=== PATIENT | male | born 1950 | race Caucasian/White ===

== ENCOUNTER 2023-11-03 16:33 | Inpatient (IN) ==
--- NOTE | 2023-11-03 16:40 | Emergency Department Note ---
Impression & Plan Aspiration pneumonia, Hypoxia ED Provider Note Provider: Yobani Partida MD DATE OF SERVICE: 11/03/2023 CHIEF COMPLAINT: Hypoxia postsurgery today HISTORY OF PRESENT ILLNESS: Patient is a 73-year-old gentleman past medical history of GERD and esophageal stricture as well as arthritis presenting via ambulance from the emergency orthopedic surgery center. Underwent a left knee replacement this morning. Finished surgery on 9:30 AM according the patient and his son-in-law who is at bedside. Since that time has had issues with low oxygen after becoming nauseous and vomiting. There is concern that he possibly aspirated and over the course of the day that he has been there and they have been unable to wean his oxygen level. Not normally on oxygen at baseline. Denies any falls or trauma. Denies chest pain or abdominal pain. Still experiencing a bit of numbness in the left foot from spinal anesthesia but feels his left leg. Denies a history of pulmonary issues or significant smoking in the past. Denies feeling significantly short of breath at rest. No significant cardiac history reported. Patient did receive Pepcid as well as several nausea medications at the surgery center and does not endorse any nausea now. Little bit of dizziness with the nausea earlier but this is resolved. PAST MEDICAL HISTORY: As noted above MEDICATIONS: Reviewed home medication list SOCIAL HISTORY: Non-smoker PHYSICAL EXAM: GENERAL: alert and oriented in no acute distress on stretcher Head: normocephalic and atraumatic EYES: No injection, discharge or icterus.EOMI. NECK: Trachea midline. Supple. ENT: Mucous membranes pink and moist. LUNGS: Airway patent. No retractions. Breath sounds clear with a few crackles in the bases. HEART: Regular rate and rhythm. No chest wall tenderness ABDOMEN: Soft and non-tender, without guarding or rebound. SKIN: Acyanotic, warm, dry, without rashes EXTREMITIES: Without swelling, tenderness or deformity except for the left lower extremity which is in a brace with wound drain in place. Intact gross sensation of left calf. NEUROLOGICAL: No aphasia. No facial droop or slurred speech. Normal strength and tone in the extremities. Sensation to gross touch normal EK beats per minute. Normal sinus rhythm. No PVC or PAC. No acute ST segment elevation or depression with a QTc of 439. CONTINUOUS CARDIAC MONITORING: was ordered and showed a heart rate of80s to 90s bpm in normal sinus rhythm Patient's laboratory studies and imaging reviewed. Differential includes Reactive airway disease, pneumonia, pneumothorax, COPD, CHF, infections, cardiac ischemia, pulmonary embolism, musculoskeletal, gastrointestinal, as well as other pathologies. IMPRESSION/MEDICAL DECISION MAKING: Patient arrived to the time of unexpected downtime. Patient well-appearing on exam but new hypoxia requiring 5 to 6 L of nasal cannula oxygen supplementation. Will obtain CT of the chest to further differentiate exclude PE or occult aspiration as chest x-ray without severe abnormality noted. Does not appear to be pneumothorax. Denies significant chest pain. Expected slight numbness in the left foot after spinal anesthesia but no significant neurological deficits appreciable. No reported history of pulmonary issues or COPD. Chest x-ray. Also with acute findings. Did unfortunately hemodialysis initial blood work required recollect. Blood work here with a mild leukocytosis 11.2 and minimal anemia of 13.6. No significant electrolyte abnormalities signs of renal dysfunction. Troponin sent. CT of the chest completed will cover empirically with a dose of Unasyn for antimicrobial coverage. Will bring into the hospital for further care with his hypoxia. Patient and family updated at bedside. DIAGNOSIS: Hypoxia, aspiration pneumonia DISPOSITION: Hospitalist will evaluate Patient was agreeable with this plan. Allergies Allergies Allergy/AdvReac Type Severity Reaction Status Date / Time morphine AdvReac Severe COULD NOT Verified 11/03/23 19:04 URINATE Home Meds Home Medications Medication Instructions Recorded Confirmed ascorbic acid (vitamin C) 1,000 mg 1 g PO DAILY 11/03/23 11/03/23 tablet (Vitamin C) cefadroxil 500 mg capsule 500 mg PO BID 11/03/23 11/03/23 cholecalciferol (vitamin D3) 50 50 mcg PO DAILY 11/03/23 11/03/23 mcg (2,000 unit) capsule (Vitamin D3) glucosamine sulf dipot 1 cap PO DAILY 11/03/23 11/03/23 chlr,msm,chond 550 mg-C 30 mg-whitney 1 mg capsule (Glucosamine Chondroitin) omega 7-uyj-skn-fish oil 1,200 mg 1 cap PO DAILY 11/03/23 11/03/23 (144 mg-216 mg) capsule (Fish Oil) ondansetron HCl 4 mg tablet 4 mg PO Q6H PRN NAUSEA/VOMTING 11/03/23 11/03/23 pantoprazole 40 mg tablet,delayed 40 mg PO BID 11/03/23 11/03/23 release turmeric 400 mg capsule 400 mg PO DAILY 11/03/23 11/03/23 zinc gluconate 50 mg tablet 50 mg PO DAILY 11/03/23 11/03/23 Results & Data (ED) Vital Signs Vital Signs - 24 hr 11/03/23 17:20 11/03/23 17:28 11/03/23 18:34 Pulse Rate 82 Pulse Rate [Apical] 76 Respiratory Rate 22 Respiratory Effort / Characteristics Short of Breath Respiratory Depth Normal Respiratory Pattern Blood Pressure [Right Arm] 137/82 Blood Pressure Mean [Right Arm] 100 Blood Pressure Position [Right Arm] Lying Pulse Oximetry 94 91 Oxygen Delivery Method Nasal Cannula Nasal Cannula Oxygen Flow Rate 4 4 11/03/23 19:43 Pulse Rate Pulse Rate [Apical] 94 H Respiratory Rate 20 Respiratory Effort / Characteristics Non-Labored Spontaneous Respiratory Depth Normal Respiratory Pattern Regular Blood Pressure [Right Arm] 154/83 H Blood Pressure Mean [Right Arm] 106 Blood Pressure Position [Right Arm] Lying Pulse Oximetry 94 Oxygen Delivery Method Nasal Cannula Oxygen Flow Rate 3 Laboratory Data 11/03/23 18:02 11/03/23 18:02 Lab Results 11/03/23 11/03/23 Range/Units 16:20 18:02 WBC Cancelled 11.22 H RBC Cancelled 4.47 L Hgb Cancelled 13.6 L Hct Cancelled 40.6 L MCV Cancelled 90.8 MCH Cancelled 30.4 MCHC Cancelled 33.5 RDW Std Deviation Cancelled 43.6 RDW Coeff of Lucy Cancelled 13.1 Plt Count Cancelled 233 MPV Cancelled 9.8 Absolute Nucleated RBC Cancelled Nucleated RBC % (auto) Cancelled Platelet Estimate Cancelled PT Cancelled 10.9 INR Cancelled 1.0 Sodium Cancelled 137 Potassium Cancelled 4.5 Chloride Cancelled 108 H Carbon Dioxide Cancelled 23 Anion Gap Cancelled 6 BUN Cancelled 20 Creatinine Cancelled 1.04 Est Cr Clr Drug Dosing Cancelled Not Reportable Est GFR ( Amer) Cancelled 81.6 Est GFR (Non-Af Amer) Cancelled 70.4 BUN/Creatinine Ratio Cancelled 19.2 Glucose Cancelled 125 H Calcium Cancelled 8.3 L Total Bilirubin Cancelled 0.7 AST Cancelled 26 ALT Cancelled 17 Alkaline Phosphatase Cancelled 62 Troponin I High Sens 5.6 (0-20) pg/ml Total Protein Cancelled 6.8 Albumin Cancelled 4.0 Globulin Cancelled 2.8 Albumin/Globulin Ratio Cancelled 1.4 Administered Medications Discontinued Medications Ioversol (Optiray 350 500ml) 109 ml IV ONCE ONE Stop: 11/03/23 19:34 Last Admin: 11/03/23 19:33 Dose: 109 ml Documented By: [facility] Data Radiologist's Impression: Chest X-Ray 11/03/23 00:00 Rajat Lopez CXR 1V SINGLE VIEW CHEST CLINICAL HISTORY: Aspiration. FINDINGS: An AP, portable, upright chest radiograph is obtained. No prior studies are available for comparison at the time of dictation. The heart is enlarged. The pulmonary vasculature is noncongested. Nonspecific interstitial thickening secondary to chronic. No airspace consolidation or large pleural effusion is identified. Scarring/atelectasis is seen at both lung bases. No pneumothorax is seen. The skeletal structures are osteopenic. The bony thorax is grossly intact. Postsurgical change is noted in both shoulders. IMPRESSION: Cardiomegaly with no active disease in the chest. ACT 112: Negative or not required by law. Electronically signed by: Ronnie Pérez M.D. 11/03/2023 4:24 PM Chest CTA 11/03/23 16:38 Exam(s): CTA CHEST IV Amt: 109 cc opti 350 EXAM: CT Angiography Chest With Intravenous Contrast CLINICAL HISTORY: Reason for exam: PE, hypoxia. TECHNIQUE: Axial computed tomographic angiography images of the chest with intravenous contrast. CTDI is 15.48 mGy and DLP is 492.11 mGy-cm. Automated exposure control was utilized for the study. A dose lowering technique was utilized adhering to the principles of ALARA. MIP reconstructed images were created and reviewed. COMPARISON: No relevant prior studies available. FINDINGS: Pulmonary arteries: Unremarkable. No evidence of pulmonary embolus. Aorta: No acute findings. No thoracic aortic aneurysm. Other veins: Apparent right subclavian vein. Lungs: Perihilar and bibasilar atelectasis versus infiltrate, left greater than right. No mass. Pleural space: Unremarkable. No significant effusion. No pneumothorax. Heart: See below. Mediastinum: Fluid within the esophagus, correlate for esophageal reflux. Bones/joints: Knee anterior pericardial effusion versus pericardial thickening measuring 5.2 mm. No acute fracture. No dislocation. Soft tissues: Unremarkable. Lymph nodes: Unremarkable. No enlarged lymph nodes. Gallbladder and bile ducts: Distended gallbladder without wall thickening. IMPRESSION: 1. No evidence of pulmonary embolus. Postsurgical changes in the bilateral humeri. 2. Perihilar and bibasilar atelectasis versus infiltrate, left greater than right. 3. Small anterior pericardial effusion versus pericardial thickening measuring 5.2 mm. Electronically signed by: Jasmyne Wilson MD 11/03/23 20:12 PM Discharge Plan Visit Data Chief Complaint: Dizziness Stated Complaint: DIZZINESS ED Provider: Yobani Partida Discharge Problem: Aspiration pneumonia, Hypoxia Patient Disposition: Being Evaluated by Hospitalist Forms Stand Alone Forms: My [facility] [employer] Prescriptions Prescriptions: No Action ascorbic acid (vitamin C) [Vitamin C] 1,000 mg Tablet 1 g PO DAILY ondansetron HCl 4 mg tablet 4 mg PO Q6H PRN (Reason: NAUSEA/VOMTING) cefadroxil 500 mg capsule 500 mg PO BID Rx Instructions: ORDERED 11/11/23, "NOT STARTED YET". pantoprazole 40 mg tablet,delayed release (DR/EC) 40 mg PO BID zinc gluconate 50 mg Tablet 50 mg PO DAILY cholecalciferol (vitamin D3) [Vitamin D3] 50 mcg (2,000 unit) Capsule 50 mcg PO DAILY omega 5-mpm-lcl-fish oil [Fish Oil] 1,200 (144-216) mg Capsule 1 cap PO DAILY Rx Instructions: ON HOLD FOR SURGICAL PROCEDURE turmeric 400 mg Capsule 400 mg PO DAILY Glucosamine Chondroitin 550-30-1 mg Capsule 1 cap PO DAILY Referrals Referrals: PCP,NO [Physician] -
--- NOTE | 2023-11-03 17:47 | XRay Report ---
SINGLE VIEW CHEST CLINICAL HISTORY: Aspiration. FINDINGS: An AP, portable, upright chest radiograph is obtained. No prior studies are available for comparison at the time of dictation. The heart is enlarged. The pulmonary vasculature is noncongested. Nonspecific interstitial thickening secondary to chronic. No airspace consolidation or large pleural effusion is identified. Scarring/atelectasis is seen at both lung bases. No pneumothorax is seen. The skeletal structures are osteopenic. The bony thorax is grossly intact. Postsurgical change is noted in both shoulders. IMPRESSION: Cardiomegaly with no active disease in the chest. ACT 112: Negative or not required by law. Electronically signed by: Ronnie Pérez M.D. 11/03/2023 4:24 PM [facility]
[2023-11-03 18:35] LABS: Hematocrit (blood only) 40.6 % (42.0-52.0); Hemoglobin 13.6 g/dl (14.0-18.0); Mean Corpuscular Hemoglobin 30.4 pg (25.0-34.0); Mean Corpuscular Hgb Conc 33.5 g/dL (32.0-36.0); Mean Corpuscular Volume 90.8 fL (80.0-100.0); Mean Platelet Volume 9.8 fL (9.4-12.4); Platelet Count 233 K/uL (130-400); RDW Coefficient of Variation 13.1 % (11.5-14.5); RDW Standard Deviation 43.6 fL (36.4-46.3); Red Blood Count 4.47 M/uL (4.70-6.10); White Blood Count 11.22 K/ul (4.8-10.8)
[2023-11-03 18:52] LABS: Alanine Aminotransferase 17 U/L (7-52); Albumin Globulin Ratio 1.4 (0.9-2); Alkaline Phosphatase 62 U/L (34-104); Anion Gap 6 (3-11); Aspartate Aminotransferase 26 U/L (13-39); BUN Creatinine Ratio 19.2 (10-20); Bilirubin,Total 0.7 mg/dl (0.2-1.0); Blood Urea Nitrogen 20 mg/dl (6-23); Calcium 8.3 mg/dl (8.6-10.3); Carbon Dioxide 23 mmol/L (21-32); Chloride 108 mmol/L (98-107); Est GFR (African American) 81.6 ml/min; Est GFR (Non-African American) 70.4 ml/min; Globulin 2.8 gm/dl (2.5-4.0); Glucose 125 mg/dl (70-99(Fasting)); Potassium 4.5 mmol/L (3.5-5.1); Sodium 137 mmol/L (136-145); Total Protein 6.8 gm/dl (6.0-8.3)
[2023-11-03 19:03] LABS: Prothrombin Time 10.9 Seconds (9.0-12.0)
[2023-11-03] MEDS: OPTIRAY 350 500ml IV ONE (19:33)
[2023-11-03 19:49] LABS: Troponin I High Sensitivity 5.6 pg/ml (0-20)
--- NOTE | 2023-11-03 20:13 | CT Scan Report ---
Exam(s): CTA CHEST IV Amt: 109 cc opti 350 EXAM: CT Angiography Chest With Intravenous Contrast CLINICAL HISTORY: Reason for exam: PE, hypoxia. TECHNIQUE: Axial computed tomographic angiography images of the chest with intravenous contrast. CTDI is 15.48 mGy and DLP is 492.11 mGy-cm. Automated exposure control was utilized for the study. A dose lowering technique was utilized adhering to the principles of ALARA. MIP reconstructed images were created and reviewed. COMPARISON: No relevant prior studies available. FINDINGS: Pulmonary arteries: Unremarkable. No evidence of pulmonary embolus. Aorta: No acute findings. No thoracic aortic aneurysm. Other veins: Apparent right subclavian vein. Lungs: Perihilar and bibasilar atelectasis versus infiltrate, left greater than right. No mass. Pleural space: Unremarkable. No significant effusion. No pneumothorax. Heart: See below. Mediastinum: Fluid within the esophagus, correlate for esophageal reflux. Bones/joints: Knee anterior pericardial effusion versus pericardial thickening measuring 5.2 mm. No acute fracture. No dislocation. Soft tissues: Unremarkable. Lymph nodes: Unremarkable. No enlarged lymph nodes. Gallbladder and bile ducts: Distended gallbladder without wall thickening. IMPRESSION: 1. No evidence of pulmonary embolus. Postsurgical changes in the bilateral humeri. 2. Perihilar and bibasilar atelectasis versus infiltrate, left greater than right. 3. Small anterior pericardial effusion versus pericardial thickening measuring 5.2 mm. Electronically signed by: Jasmyne Wilson MD 11/03/23 20:12 PM
--- NOTE | 2023-11-03 20:42 | History & Physical Report ---
Date of Service November 03, 2023 Assessment & Plan (1) Acute respiratory failure with hypoxia: (2) Aspiration pneumonia: (3) Pericardial effusion: (4) Status post left knee replacement: (5) GERD (gastroesophageal reflux disease): (6) Esophageal stricture: Plan Acute respiratory failure with hypoxia/bilateral aspiration pneumonia- N.p.o. overnight Likely secondary to aspiration from nausea and vomiting as he was recovering from anesthesia Unasyn 3 g IV every 6 hours DuoNebs every 2 hours as needed Nasal cannula oxygen, titrate to keep pulse ox around 94% GERD/esophageal stricture- Usually on pantoprazole 40 mg p.o. twice daily Placed on pantoprazole 40 mg IV twice daily until aspiration process is cleared NSS at 80 mL/h x 1 L Status post left TKA- Reports that he is doing well postoperatively Aspirin 81 mg p.o. twice daily for DVT prophylaxis per Ortho protocol Consult [facility] to follow regarding PT/OT and routine postop care Acetaminophen 650 mg by mouth every 6 hours as needed for mild pain or fever Oxycodone 5 mg by mouth every 4 hours as needed for moderate pain Morphine sulfate 4 mg IV every 4 hours as needed for severe pain Hold Celebrex 200 mg p.o. twice daily, which supported the routine postop orders, until he is taken intake orally History of Present Illness Chief Complaint: The patient is sent to the emergency department from [facility], where he became short of breath and hypoxic after left TKA surgery earlier this morning Primary Care Provider: GUSTAVO LEDEZMA The patient is a 73-year-old male with a past medical history including GERD, and esophageal stricture, who underwent a left TKA at [facility] outpatient erie earlier today this morning. He reports that he had some nausea and vomiting as he was recovering from surgery, and then had issues with oxygenation. He was sent to the emergency department via ambulance. While in the emergency department, patient was found to be hypoxic, with pulse ox in the upper 80s to low 90s, which did improve with 3 L to 94-95%. Chest x-ray and CT angiography suggested bilateral, bilateral infiltrates, and patient is being admitted for aspiration pneumonia. Allergies Allergy/AdvReac Type Severity Reaction Status Date / Time morphine AdvReac Severe COULD NOT Verified 11/03/23 19:04 URINATE Home Medications Medication Instructions Recorded Confirmed Type ascorbic acid (vitamin C) 1,000 mg 1 g PO DAILY 11/03/23 11/03/23 History tablet (Vitamin C) cefadroxil 500 mg capsule 500 mg PO BID 11/03/23 11/03/23 History cholecalciferol (vitamin D3) 50 50 mcg PO DAILY 11/03/23 11/03/23 History mcg (2,000 unit) capsule (Vitamin D3) glucosamine sulf dipot 1 cap PO DAILY 11/03/23 11/03/23 History chlr,msm,chond 550 mg-C 30 mg-whitney 1 mg capsule (Glucosamine Chondroitin) omega 3-dbh-hxs-fish oil 1,200 mg 1 cap PO DAILY 11/03/23 11/03/23 History (144 mg-216 mg) capsule (Fish Oil) ondansetron HCl 4 mg tablet 4 mg PO Q6H PRN NAUSEA/VOMTING 11/03/23 11/03/23 History pantoprazole 40 mg tablet,delayed 40 mg PO BID 11/03/23 11/03/23 History release turmeric 400 mg capsule 400 mg PO DAILY 11/03/23 11/03/23 History zinc gluconate 50 mg tablet 50 mg PO DAILY 11/03/23 11/03/23 History Past Med/Surg History Medical History (Updated 11/04/23 @ 04:09 by Agustin Berg MD) Esophageal stricture GERD (gastroesophageal reflux disease) Social History Smoking Status: Never smoker Hx Alcohol Use: No Hx Substance Use: No Preferred Language: Salvadorean Communication Ability: Effective 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 Beliefs That Will Affect Care: None Current Living Situation: Spouse Other Information That Helps Us Care for You: No Feels Safe at Home: Yes Safety Concerns: Feels Safe At This Time Assistive Devices: Glasses Review of Systems Review of Systems: The patient denies chest pain, palpitations, lower extremity swelling, fevers, chills, sweats, nausea, vomiting, diarrhea , constipation, abdominal pain, pelvic pain, blood in urine or stool, dysuria, urinary frequency or urgency, lightheadedness, dizziness, headache, memory loss, loss of consciousness, rash, abnormal bruising or bleeding, imbalance, focal or generalized weakness, numbness or tingling in arms or legs, generalized arthralgias or myalgias, back or neck pain, or night sweats. The review of systems is otherwise negative other than for that already noted above, and at least 10 systems have been reviewed. Physical Exam Physical Exam: The patient is awake, alert and oriented 3, well developed and well nourished, normocephalic and atraumatic, lying in bed and in no acute distress. HEENT--PERRL, EOMI, mucous membranes and oropharynx mildly dry. Neck--supple. No JVD. No bruits. Thyroid normal, trachea midline, no adenopathy. Heart--normal S1 and S2. No murmurs, rubs or gallops. Lungs--coarse breath sounds bilaterally, no respiratory distress, no accessory muscle use. Abdomen--normal bowel sounds and soft. Nontender. Nondistended, no hernias or masses, no organomegaly. Extremities--No edema. Dermatologic--normal skin turgor, normal color, no abnormal lymph nodes, no rash. Neurologic--cranial nerves II through XII grossly intact. Rheumatologic--normal range of motion, except for recently surgerized left knee Psychiatric--normal affect. Results & Data Results & Data Vital Signs (Past 12 Hours) Vital Signs Pulse Pulse Resp BP Pulse Ox O2 Del Method O2 Flow Rate 11/03/23 19:43 94 H 20 154/83 H 94 Nasal Cannula 3 11/03/23 18:34 82 11/03/23 17:28 91 Nasal Cannula 4 11/03/23 17:20 76 22 137/82 94 Nasal Cannula 4 Laboratory Results Laboratory Results WBC 11.22 K/ul (4.8-10.8) H 11/03/23 18:02 RBC 4.47 M/uL (4.70-6.10) L 11/03/23 18:02 Hgb 13.6 g/dl (14.0-18.0) L 11/03/23 18:02 Hct 40.6 % (42.0-52.0) L 11/03/23 18:02 MCV 90.8 fL (80.0-100.0) 11/03/23 18:02 MCH 30.4 pg (25.0-34.0) 11/03/23 18:02 MCHC 33.5 g/dL (32.0-36.0) 11/03/23 18:02 RDW Std Deviation 43.6 fL (36.4-46.3) 11/03/23 18:02 RDW Coeff of Lucy 13.1 % (11.5-14.5) 11/03/23 18:02 Plt Count 233 K/uL (130-400) 11/03/23 18:02 MPV 9.8 fL (9.4-12.4) 11/03/23 18:02 Absolute Nucleated RBC Cancelled 11/03/23 16:20 Nucleated RBC % (auto) Cancelled 11/03/23 16:20 Platelet Estimate Cancelled 11/03/23 16:20 PT 10.9 Seconds (9.0-12.0) 11/03/23 18:02 INR 1.0 (0.9-1.1) 11/03/23 18:02 Sodium 137 mmol/L (136-145) 11/03/23 18:02 Potassium 4.5 mmol/L (3.5-5.1) 11/03/23 18:02 Chloride 108 mmol/L (98-107) H 11/03/23 18:02 Carbon Dioxide 23 mmol/L (21-32) 11/03/23 18:02 Anion Gap 6 (3-11) 11/03/23 18:02 BUN 20 mg/dl (6-23) 11/03/23 18:02 Creatinine 1.04 mg/dl (0.6-1.4) 11/03/23 18:02 Est Cr Clr Drug Dosing Not Reportable 11/03/23 18:02 Est GFR ( Amer) 81.6 ml/min 11/03/23 18:02 Est GFR (Non-Af Amer) 70.4 ml/min 11/03/23 18:02 BUN/Creatinine Ratio 19.2 (10-20) 11/03/23 18:02 Glucose 125 mg/dl (70-99(Fasting)) H 11/03/23 18:02 Calcium 8.3 mg/dl (8.6-10.3) L 11/03/23 18:02 Total Bilirubin 0.7 mg/dl (0.2-1.0) 11/03/23 18:02 AST 26 U/L (13-39) 11/03/23 18:02 ALT 17 U/L (7-52) 11/03/23 18:02 Alkaline Phosphatase 62 U/L (34-104) 11/03/23 18:02 Troponin I High Sens 5.6 pg/ml (0-20) 11/03/23 18:02 Total Protein 6.8 gm/dl (6.0-8.3) 11/03/23 18:02 Albumin 4.0 gm/dl (3.4-5.0) 11/03/23 18:02 Globulin 2.8 gm/dl (2.5-4.0) 11/03/23 18:02 Albumin/Globulin Ratio 1.4 (0.9-2) 11/03/23 18:02 Impressions Chest X-Ray 11/03/23 00:00 Rajat Lopez CXR 1V SINGLE VIEW CHEST CLINICAL HISTORY: Aspiration. FINDINGS: An AP, portable, upright chest radiograph is obtained. No prior studies are available for comparison at the time of dictation. The heart is enlarged. The pulmonary vasculature is noncongested. Nonspecific interstitial thickening secondary to chronic. No airspace consolidation or large pleural effusion is identified. Scarring/atelectasis is seen at both lung bases. No pneumothorax is seen. The skeletal structures are osteopenic. The bony thorax is grossly intact. Postsurgical change is noted in both shoulders. IMPRESSION: Cardiomegaly with no active disease in the chest. ACT 112: Negative or not required by law. Electronically signed by: Ronnie Pérez M.D. 11/03/2023 4:24 PM Chest CTA 11/03/23 16:38 Exam(s): CTA CHEST IV Amt: 109 cc opti 350 EXAM: CT Angiography Chest With Intravenous Contrast CLINICAL HISTORY: Reason for exam: PE, hypoxia. TECHNIQUE: Axial computed tomographic angiography images of the chest with intravenous contrast. CTDI is 15.48 mGy and DLP is 492.11 mGy-cm. Automated exposure control was utilized for the study. A dose lowering technique was utilized adhering to the principles of ALARA. MIP reconstructed images were created and reviewed. COMPARISON: No relevant prior studies available. FINDINGS: Pulmonary arteries: Unremarkable. No evidence of pulmonary embolus. Aorta: No acute findings. No thoracic aortic aneurysm. Other veins: Apparent right subclavian vein. Lungs: Perihilar and bibasilar atelectasis versus infiltrate, left greater than right. No mass. Pleural space: Unremarkable. No significant effusion. No pneumothorax. Heart: See below. Mediastinum: Fluid within the esophagus, correlate for esophageal reflux. Bones/joints: Knee anterior pericardial effusion versus pericardial thickening measuring 5.2 mm. No acute fracture. No dislocation. Soft tissues: Unremarkable. Lymph nodes: Unremarkable. No enlarged lymph nodes. Gallbladder and bile ducts: Distended gallbladder without wall thickening. IMPRESSION: 1. No evidence of pulmonary embolus. Postsurgical changes in the bilateral humeri. 2. Perihilar and bibasilar atelectasis versus infiltrate, left greater than right. 3. Small anterior pericardial effusion versus pericardial thickening measuring 5.2 mm. Electronically signed by: Jasmyne Wilson MD 11/03/23 20:12 PM This CIWA Code Status & VTE Plan Code Status Full code VTE Prophylaxis Plan VTE Prophylaxis will be ordered: Yes PG Care Time/CCT Total # of Minutes Spent Total Time Spent with Patient: Total time spent is greater than 50% in coordination of care (as documented) at patient's floor/unit and/or counseling patient: Coding Level of Care Code 70906 INT INP/OBS CARE 3/75MIN Diagnoses Acute respiratory failure with hypoxia J96.01 Aspiration pneumonia J69.0 Pericardial effusion I31.39 Status post left knee replacement Z96.652 GERD (gastroesophageal reflux disease) K21.9 Esophageal stricture K22.2
[2023-11-03] MEDS: ASPIRIN 81 MG CHEW PO STA (21:07)
[2023-11-03] MEDS: PANTOprazole 40 MG in SYRINGE 0 ML IV ONE (21:08)
[2023-11-03] MEDS: AMPICILLIN/SULBACTAM SOD 3,000 MG in SODIUM CHLOR 0.9% MINI-B 100 ML IV STA (21:08)
[2023-11-03] MEDS ORDERED: ONDANSETRON INJ 2 MG/ML 2 ML VIAL IV PRN (22:45)
[2023-11-03] MEDS ORDERED: ALBUT/IPRATROP 3MG/0.5MG NEB 3 ML VIAL NEB PRN (22:45)
[2023-11-03] MEDS: SODIUM CHLORIDE 0.9% 1,000 ML IV SCH (23:38)
[2023-11-04] MEDS: AMPICILLIN/SULBACTAM SOD 3,000 MG in SODIUM CHLOR 0.9% MINI-B 100 ML IV SCH (03:38)
[2023-11-04] MEDS: ACETAMINOPHEN 325 MG TAB PO PRN (07:10)
[2023-11-04 07:21] LABS: Basophils # (auto) 0.03 K/uL (0.00-0.20); Basophils % (auto) 0.2 %; Hematocrit (blood only) 36.8 % (42.0-52.0); Hemoglobin 12.4 g/dl (14.0-18.0); Immature Granulocytes # (auto) 0.04 K/uL (0.01-0.20); Immature Granulocytes % (auto) 0.3 %; Lymphocytes # (auto) 2.12 K/uL (1.20-3.40); Mean Corpuscular Hemoglobin 30.3 pg (25.0-34.0); Mean Corpuscular Hgb Conc 33.7 g/dL (32.0-36.0); Mean Platelet Volume 9.8 fL (9.4-12.4); Monocytes # (auto) 0.93 K/uL (0.11-0.59); Monocytes % (auto) 6.6 %; Neutrophils # (auto) 10.98 K/uL (1.40-6.50); Neutrophils % (auto) 77.9 %; Platelet Count 202 K/uL (130-400); RDW Coefficient of Variation 13.2 % (11.5-14.5); RDW Standard Deviation 43.6 fL (36.4-46.3); Red Blood Count 4.09 M/uL (4.70-6.10)
--- NOTE | 2023-11-04 07:44 | Orthopedic Consultation ---
Date of Consultation November 04, 2023 Assessment & Plan (1) Status post left knee replacement: 73-year-old male who underwent a same-day left total knee arthroplasty at [facility] and tolerated the procedure well. Postoperatively he had issues with nausea vomiting and hypoxia and was transferred to [facility] for further medical care. At this point his left knee is doing fine, he can begin physical therapy as soon as primary team feels it is safe for him to get out of bed and ambulate. He can be weight-bear as tolerated on his left leg using his walker can work on range of motion as tolerated, quad sets straight leg raises and heel slides. Will discontinue the Hemovac today , would continue with aspirin 81 mg twice a day for 1 month postop DVT prophylaxis, continue with cefadroxil 1 tab twice a day for 2 weeks. He can be discharged home with home health nursing and physical therapy when deemed appropriate by primary team. He will follow-up in the office 2 weeks after surgery for routine postoperative care or sooner if he is having any issues. Will place discharge instructions in patient's chart, please reach out with any questions or concerns, orthopedics will sign off at this time History of Present Illness Reason for Consultation: post op care of left TKA Attending Physician: Rajat El MD History of Present Illness Rajat is a pleasant 73-year-old male who we are consulted on regarding his left knee, he underwent a left total knee arthroplasty in the morning of November 02 at our surgery center, the surgery was uncomplicated. Postoperatively however he became nauseous with episodes of vomiting and had low oxygen saturation. There was concern that he had potentially aspirated at that time and were unable to get his oxygen levels to improve. At that point he was transferred via ambulance from our surgery center to [facility] and was admitted under medical service. We are consulted in regards to postoperative care of his left knee. At this point he denies chest pain shortness of breath fever or chills, his pain in his left leg is a 1 out of 10 Allergies Allergy/AdvReac Type Severity Reaction Status Date / Time morphine AdvReac Severe COULD NOT Verified 11/03/23 19:04 URINATE Home Medications Medication Instructions Recorded Confirmed Type ascorbic acid (vitamin C) 1,000 mg 1 g PO DAILY 11/03/23 11/03/23 History tablet (Vitamin C) cefadroxil 500 mg capsule 500 mg PO BID 11/03/23 11/03/23 History cholecalciferol (vitamin D3) 50 50 mcg PO DAILY 11/03/23 11/03/23 History mcg (2,000 unit) capsule (Vitamin D3) glucosamine sulf dipot 1 cap PO DAILY 11/03/23 11/03/23 History chlr,msm,chond 550 mg-C 30 mg-whitney 1 mg capsule (Glucosamine Chondroitin) omega 6-bcz-xcf-fish oil 1,200 mg 1 cap PO DAILY 11/03/23 11/03/23 History (144 mg-216 mg) capsule (Fish Oil) ondansetron HCl 4 mg tablet 4 mg PO Q6H PRN NAUSEA/VOMTING 11/03/23 11/03/23 History pantoprazole 40 mg tablet,delayed 40 mg PO BID 11/03/23 11/03/23 History release turmeric 400 mg capsule 400 mg PO DAILY 11/03/23 11/03/23 History zinc gluconate 50 mg tablet 50 mg PO DAILY 11/03/23 11/03/23 History Patient History Medical History Esophageal stricture GERD (gastroesophageal reflux disease) Social History Smoking Status: Never smoker Hx Alcohol Use: No Hx Substance Use: No Preferred Language: Turkmen Communication Ability: Effective Bookkeeping Manager Required: No Beliefs That Will Affect Care: None Current Living Situation: Spouse Other Information That Helps Us Care for You: No Feels Safe at Home: Yes Safety Concerns: Feels Safe At This Time Assistive Devices: Glasses Physical Exam Physical Exam: Vital Signs Temp 36.1 C L 11/04/23 03:44 Pulse 85 11/04/23 07:00 Resp 15 11/04/23 03:44 BP 116/65 11/04/23 03:44 Pulse Ox 93 11/04/23 04:00 O2 Del Method Nasal Cannula 11/04/23 04:00 O2 Flow Rate 1 11/04/23 04:00 Intake & Output 11/03/23 11/04/23 11/04/23 18:59 06:59 18:59 Intake Total 200 / 200 Output Total 675 / 675 Balance -475 / -475 Weight 68.3 kg Intake: IV 200 / 200 Ampicillin/Sul bactam Sod 3,000 200 / 200 mg In Sodium C hlor 0.9% Mini-B 100 ml @ 100 m ls/hr IV Q6H [facility] Rx#:[id number] Oral 0 / 0 Output: Urine 600 / 600 Drain Output 75 / 75 Left Knee 75 / 75 Other: Weight Measureme nt Method Built in [facility] Musculoskeletal: Left knee: kelechi wrap in place, hemovac in place. sensation intact to light touch to his toes, DP +2. he is able to plantar/dorsiflex at his ankle. calf is soft and non tender. Results & Data Vital Signs (Past 12 Hours) Vital Signs Temp Pulse Pulse Resp BP Pulse Ox Pulse Ox 11/04/23 07:00 85 11/04/23 04:00 93 11/04/23 03:44 36.1 C L 79 15 116/65 92 11/03/23 23:12 72 11/03/23 23:00 11/03/23 22:48 37.1 C 18 133/85 97 11/03/23 21:58 11/03/23 21:02 82 20 129/78 95 11/03/23 19:43 94 H 20 154/83 H 94 O2 Del Method O2 Del Method O2 Flow Rate O2 Flow Rate 11/04/23 07:00 11/04/23 04:00 Nasal Cannula 1 11/04/23 03:44 Room Air 11/03/23 23:12 11/03/23 23:00 Nasal Cannula 2 11/03/23 22:48 Nasal Cannula 2 11/03/23 21:58 Room Air 11/03/23 21:02 Nasal Cannula 3 11/03/23 19:43 Nasal Cannula 3 Laboratory Results Laboratory Results WBC 14.10 K/ul (4.8-10.8) H 11/04/23 06:51 RBC 4.09 M/uL (4.70-6.10) L 11/04/23 06:51 Hgb 12.4 g/dl (14.0-18.0) L 11/04/23 06:51 Hct 36.8 % (42.0-52.0) L 11/04/23 06:51 MCV 90.0 fL (80.0-100.0) 11/04/23 06:51 MCH 30.3 pg (25.0-34.0) 11/04/23 06:51 MCHC 33.7 g/dL (32.0-36.0) 11/04/23 06:51 RDW Std Deviation 43.6 fL (36.4-46.3) 11/04/23 06:51 RDW Coeff of Lucy 13.2 % (11.5-14.5) 11/04/23 06:51 Plt Count 202 K/uL (130-400) 11/04/23 06:51 MPV 9.8 fL (9.4-12.4) 11/04/23 06:51 Immature Gran % (Auto) 0.3 % 11/04/23 06:51 Neut % (Auto) 77.9 % 11/04/23 06:51 Lymph % (Auto) 15.0 % 11/04/23 06:51 [place] % (Auto) 6.6 % 11/04/23 06:51 Eos % (Auto) 0.0 % 11/04/23 06:51 Baso % (Auto) 0.2 % 11/04/23 06:51 Neut # (Auto) 10.98 K/uL (1.40-6.50) H 11/04/23 06:51 Lymph # (Auto) 2.12 K/uL (1.20-3.40) 11/04/23 06:51 [place] # (Auto) 0.93 K/uL (0.11-0.59) H 11/04/23 06:51 Eos # (Auto) 0.00 K/uL (0.00-0.50) 11/04/23 06:51 Baso # (Auto) 0.03 K/uL (0.00-0.20) 11/04/23 06:51 Immature Gran # (Auto) 0.04 K/uL (0.01-0.20) 11/04/23 06:51 Absolute Nucleated RBC Cancelled 11/03/23 16:20 Nucleated RBC % (auto) Cancelled 11/03/23 16:20 Platelet Estimate Cancelled 11/03/23 16:20 PT 10.9 Seconds (9.0-12.0) 11/03/23 18:02 INR 1.0 (0.9-1.1) 11/03/23 18:02 Sodium 137 mmol/L (136-145) 11/03/23 18:02 Potassium 4.5 mmol/L (3.5-5.1) 11/03/23 18:02 Chloride 108 mmol/L (98-107) H 11/03/23 18:02 Carbon Dioxide 23 mmol/L (21-32) 11/03/23 18:02 Anion Gap 6 (3-11) 11/03/23 18:02 BUN 20 mg/dl (6-23) 11/03/23 18:02 Creatinine 1.04 mg/dl (0.6-1.4) 11/03/23 18:02 Est Cr Clr Drug Dosing Not Reportable 11/03/23 18:02 Est GFR ( Amer) 81.6 ml/min 11/03/23 18:02 Est GFR (Non-Af Amer) 70.4 ml/min 11/03/23 18:02 BUN/Creatinine Ratio 19.2 (10-20) 11/03/23 18:02 Glucose 125 mg/dl (70-99(Fasting)) H 11/03/23 18:02 Calcium 8.3 mg/dl (8.6-10.3) L 11/03/23 18:02 Total Bilirubin 0.7 mg/dl (0.2-1.0) 11/03/23 18:02 AST 26 U/L (13-39) 11/03/23 18:02 ALT 17 U/L (7-52) 11/03/23 18:02 Alkaline Phosphatase 62 U/L (34-104) 11/03/23 18:02 Troponin I High Sens 5.6 pg/ml (0-20) 11/03/23 18:02 Total Protein 6.8 gm/dl (6.0-8.3) 11/03/23 18:02 Albumin 4.0 gm/dl (3.4-5.0) 11/03/23 18:02 Globulin 2.8 gm/dl (2.5-4.0) 11/03/23 18:02 Albumin/Globulin Ratio 1.4 (0.9-2) 11/03/23 18:02 Impressions Chest X-Ray 11/03/23 00:00 Rajat Lopez CXR 1V SINGLE VIEW CHEST CLINICAL HISTORY: Aspiration. FINDINGS: An AP, portable, upright chest radiograph is obtained. No prior studies are available for comparison at the time of dictation. The heart is enlarged. The pulmonary vasculature is noncongested. Nonspecific interstitial thickening secondary to chronic. No airspace consolidation or large pleural effusion is identified. Scarring/atelectasis is seen at both lung bases. No pneumothorax is seen. The skeletal structures are osteopenic. The bony thorax is grossly intact. Postsurgical change is noted in both shoulders. IMPRESSION: Cardiomegaly with no active disease in the chest. ACT 112: Negative or not required by law. Electronically signed by: Ronnie Pérez M.D. 11/03/2023 4:24 PM Chest CTA 11/03/23 16:38 Exam(s): CTA CHEST IV Amt: 109 cc opti 350 EXAM: CT Angiography Chest With Intravenous Contrast CLINICAL HISTORY: Reason for exam: PE, hypoxia. TECHNIQUE: Axial computed tomographic angiography images of the chest with intravenous contrast. CTDI is 15.48 mGy and DLP is 492.11 mGy-cm. Automated exposure control was utilized for the study. A dose lowering technique was utilized adhering to the principles of ALARA. MIP reconstructed images were created and reviewed. COMPARISON: No relevant prior studies available. FINDINGS: Pulmonary arteries: Unremarkable. No evidence of pulmonary embolus. Aorta: No acute findings. No thoracic aortic aneurysm. Other veins: Apparent right subclavian vein. Lungs: Perihilar and bibasilar atelectasis versus infiltrate, left greater than right. No mass. Pleural space: Unremarkable. No significant effusion. No pneumothorax. Heart: See below. Mediastinum: Fluid within the esophagus, correlate for esophageal reflux. Bones/joints: Knee anterior pericardial effusion versus pericardial thickening measuring 5.2 mm. No acute fracture. No dislocation. Soft tissues: Unremarkable. Lymph nodes: Unremarkable. No enlarged lymph nodes. Gallbladder and bile ducts: Distended gallbladder without wall thickening. IMPRESSION: 1. No evidence of pulmonary embolus. Postsurgical changes in the bilateral humeri. 2. Perihilar and bibasilar atelectasis versus infiltrate, left greater than right. 3. Small anterior pericardial effusion versus pericardial thickening measuring 5.2 mm. Electronically signed by: Jasmyne Wilson MD 11/03/23 20:12 PM
[2023-11-04] MEDS ORDERED: ONDANSETRON INJ 2 MG/ML 2 ML VIAL IV PRN (07:45)
[2023-11-04 07:48] LABS: Albumin Globulin Ratio 1.4 (0.9-2); Albumin Level 3.4 gm/dl (3.4-5.0); BUN Creatinine Ratio 16.8 (10-20); Calcium 7.9 mg/dl (8.6-10.3); Creatinine Clr Calc Pharmacy 53.7 ml/min; Est GFR (African American) 84.5 ml/min; Est GFR (Non-African American) 72.9 ml/min; Globulin 2.5 gm/dl (2.5-4.0); Magnesium 1.8 mg/dl (1.7-2.4); Potassium 4.1 mmol/L (3.5-5.1); Total Protein 5.9 gm/dl (6.0-8.3)
[2023-11-04] MEDS ORDERED: methylPREDNISolone 125 MG/2 ML VIAL IV SCH (08:45)
[2023-11-04] MEDS: PANTOprazole 40 MG in SYRINGE 0 ML IV SCH (09:05)
[2023-11-04] MEDS: oxyCODONE HCL IR 5 MG TAB (IMMEDIATE RELEASE) PO PRN (09:14)
[2023-11-04] MEDS: methylPREDNISolone 40 MG in SYRINGE 0 ML IV SCH (09:55)
[2023-11-04] MEDS: ASPIRIN 81 MG ECTAB PO SCH (10:16)
--- NOTE | 2023-11-04 11:27 | XCELERA ---
[id number]
--- NOTE | 2023-11-04 12:01 | Electrocardiogram Report ---
Test Reason : Blood Pressure : / mmHG Vent. Rate : 083 BPM Atrial Rate : 083 BPM P-R Int : 146 ms QRS Dur : 090 ms QT Int : 374 ms P-R-T Axes : 054 000 024 degrees QTc Int : 439 ms Normal sinus rhythm Normal ECG No previous ECGs available Confirmed by Yinka Mcgraw ([id number]) on 11/04/2023 12:00:42 PM Referred By: REFERRED SELF Confirmed By:Elijah Mcgraw
--- NOTE | 2023-11-04 12:21 | Discharge Summary ---
Date of Service November 04, 2023 Admission HPI Per Admitting Provider The patient is a 73-year-old male with a past medical history including GERD, and esophageal stricture, who underwent a left TKA at [facility] earlier today this morning. He reports that he had some nausea and vomiting as he was recovering from surgery, and then had issues with oxygenation. He was sent to the emergency department via ambulance. While in the emergency department, patient was found to be hypoxic, with pulse ox in the upper 80s to low 90s, which did improve with 3 L to 94-95%. Chest x-ray and CT angiography suggested bilateral, bilateral infiltrates, and patient is being admitted for aspiration pneumonia. Principal Diagnosis Suspected aspiration of gastric contents with temporary acute hypoxic respiratory failure Discharge Exam General-alert and oriented x3, no fever, no chills HEENT-head atraumatic and normocephalic, pupils equal and reactive to light, extraocular muscles intact Neck-no lymphadenopathy or thyromegaly, trachea midline Chest-few scattered rhonchi. No wheezing. No dullness. No tachypnea. Cardiac-regular rate and rhythm, normal S1 and S2 Abdomen-normal bowel sounds, nontender, no hepatosplenomegaly Extremities-left knee surgical site is unremarkable. No peripheral edema Neuro-cranial nerves II through XII intact, motor and sensory function within normal limits, strength symmetrical, no focal deficits Psych-normal affect, normal mood Discharge Data Allergies Allergy/AdvReac Type Severity Reaction Status Date / Time morphine AdvReac Severe COULD NOT Verified 11/03/23 19:04 URINATE Consultations 11/03/23 19:55 ED Decision to Admit Stat 11/04/23 04:14 Consult Orthopedic Surgery Routine Ordered Studies 11/03/23 16:38 CT angio chest PE protocol Stat Hospital Course (1) Acute respiratory failure with hypoxia: Resolved. He is now on room air. He did receive 1 dose of parenteral Solu- Medrol today, November 03 (2) Aspiration pneumonia: More likely aspiration pneumonitis which has resolved. No evidence of active pneumonia. He did receive 1 dose of parenteral steroid therapy this morning but will not need this ongoing (3) Pericardial effusion: Incidental finding on chest CT scan. No clinical consequence. No intervention necessary at this time (4) Status post left knee replacement: Postoperative day #1. Incision site looks good. He will follow-up with orthopedics as scheduled (5) GERD (gastroesophageal reflux disease): Continue PPI therapy (6) Esophageal stricture: Past history of esophageal stricture. No current dysphagia. Appreciate speech evaluation and recommendations Plan Home today, November 03. Follow-up with orthopedics as scheduled. Continue oral antibiotic and aspirin therapy as prescribed by orthopedic surgeon Total Time Total Time Spent Total Time Spent (In Minutes): 45 minutes Discharge Plan Discharge Items Patient Disposition: Home - Self-Care Reason For Visit: ASPIRATION PNEUMONIA W/ HYPOXIA Discharge Diagnosis: Transient hypoxic respiratory failure due to aspiration of gastric contents, possible mild aspiration pneumonitis Activity: As commented below Activity Comment: Per orthopedic instructions Non-emergency contact: Primary Care Provider Call non-emergency contact if: your symptoms worsen Follow-up/Referrals: GUSTAVO LEDEZMA [Other] Evert Mejia PA-C [Physician Clinical Dietician] - 11/15/23 9:10 am Diet: Regular Addtl Attending Provider Instructions: Follow orthopedic discharge instructions including aspirin and antibiotic. Addtl Buyer Agent Provider Instructions: ACTIVITY RECOMMENDATIONS: SELF CARE INSTRUCTIONS AFTER TOTAL KNEE REPLACEMENT A. You may need to continue a physical therapy program after discharge from the hospital. There are several options available to you. Your doctor will assist you in selecting the best one for you. 1. An out-patient facility 2 to 3 times a week for therapy or home therapy. 2. Continue working on all exercises taught to you in the hospital. Your goals should be to increase bending of your knee to 90 degrees and beyond and to fully straighten your knee. B. You may progress at your own pace from walking with a walker or crutches to a cane; then to no assistive devices. C. Make walking a part of your daily routine. Be up as much as comfortable with rest periods throughout the day. Rest with leg elevation is very important. Use the ice wrap frequently for the first 3-4 weeks. D. There are no restrictions on activities. You may ride in a car, shop, participate in machine shop worker and all social activities. E. Wear the long elastic stockings (NEEMA hose) 20 hours a day for 2 weeks after surgery. They can be removed several times a day for laundering and for a bath. F. You may shower, no tub baths until cleared by your doctor. SPECIAL CARE INSTRUCTIONS: VERY IMPORTANT TO READ AND REVIEW A. There are a few signs you need to watch for after you are home. Call [facility] if you notice any of the followin. Increased severe knee pain. Some pain is expected especially when you exercise. 2. Increased swelling in your leg or knee; pain or swelling of the calf muscle in either lower leg. 3. Any fluid drainage from the incision. 4. Shortness of breath or chest pain. B. Please call [facility] at if you have any concerns or questions about your operation or recovery. The doctor or his nurse will return your call promptly. C. You must take antibiotics before dental work, bladder, bowel or other surgery. Your doctor will provide you with a permanent care to carry describing this precaution. IMPORTANT: * REMEMBER TO TAKE ASPIRIN, 81 MG, TWICE DAILY FOR 4 WEEKS UNLESS OTHERWISE DIRECTED. THIS IS YOUR BLOOD THINNER. * HIGH RISK PATIENTS MAY BE PRESCRIBED A STRONGER BLOOD THINNER. THIS WILL BE PROVIDED AT DISCHARGE. * CALL IF INCREASED PAIN, REDNESS, DRAINAGE OR FEVER GREATER THAT 101. * WEAR NEEMA HOSE 20 HOURS PER DAY FOR 2 WEEKS. * YOU MAY HAVE A LARGE BAND-AID LIKE DRESSING (SILVERON). THIS WILL REMAIN ON YOUR INCISION FOR 7 DAYS, THEN CAN BE REMOVED. IF INCISION IS LEAKING THROUGH DRESSING, CALL THE OFFICE . FOLLOW UP VISIT: If appointment is not already scheduled: Please call [facility] to make a follow-up appointment for 2 weeks after your surgery at . Pending Studies at Discharge: No Stand-Alone Forms: My [employer], Smoking Cessation Medications and DC Order Prescriptions: New aspirin 81 mg Tablet,Delayed Release (Dr/Ec) 81 mg PO BID Qty: 0 0RF oxycodone 5 mg Tablet 5 - 10 mg PO Q4H PRNQty: 0 0RF Continued ascorbic acid (vitamin C) [Vitamin C] 1,000 mg Tablet 1 g PO DAILY ondansetron HCl 4 mg tablet 4 mg PO Q6H PRN (Reason: NAUSEA/VOMTING) cefadroxil 500 mg capsule 500 mg PO BID Rx Instructions: ORDERED 11/11/23, "NOT STARTED YET". pantoprazole 40 mg tablet,delayed release (DR/EC) 40 mg PO BID zinc gluconate 50 mg Tablet 50 mg PO DAILY cholecalciferol (vitamin D3) [Vitamin D3] 50 mcg (2,000 unit) Capsule 50 mcg PO DAILY omega 7-syc-abb-fish oil [Fish Oil] 1,200 (144-216) mg Capsule 1 cap PO DAILY Rx Instructions: ON HOLD FOR SURGICAL PROCEDURE turmeric 400 mg Capsule 400 mg PO DAILY Glucosamine Chondroitin 550-30-1 mg Capsule 1 cap PO DAILY Discharge Orders: Discharge Order (Routine); Ordered 11/04/23 Ordered By: Rajat El Admission Data Admit Date/Time: 11/03/23 20:42 Attending Provider: Rajat El Admit Provider: Agustin Berg Primary Care Provider: GUSTAVO LEDEZMA Other Providers: Agustin eBrg; Guzman Amato Coding Level of Care Code 00022 INP/OBS DISCH >30 MIN Diagnoses Acute respiratory failure with hypoxia J96.01 Aspiration pneumonia J69.0 Pericardial effusion I31.39 Status post left knee replacement Z96.652 GERD (gastroesophageal reflux disease) K21.9 Esophageal stricture K22.2
== END 2023-11-04 13:35 | disposition home health service (06) | DRG 177 ==
LOC: ED 16:33 → 2E 20:42 → SUATTDRO 20:42 → 2E 21:58